=== PATIENT | female | born 1955 ===

== ENCOUNTER 2022-02-10 05:10 | Day surgery (SDC) | payer OTHER ==
[~2022-02-10 05:10] MED LIST: ATORVASTATIN CA40 MG; UNITHROID50 MCG
[2022-02-10] MEDS ORDERED: PERCOCET 5-3251 EACH PO (09:07)
== END 2022-02-10 12:00 | disposition home or self-care (01) ==
LOC: CIR.AMB 05:10
PROVIDERS: ATTEND Surgery
DX: D34 Benign neoplasm of thyroid gland (principal); E06.3 Autoimmune thyroiditis; E04.8 Other specified nontoxic goiter; Z20.822 Contact with and (suspected) exposure to COVID-19